=== PATIENT | female | born 2000 | race Caucasian/White ===

== ENCOUNTER 2022-02-19 18:47 | Emergency (ER) | payer SELFPAY ==
[2022-02-19 19:12] VITALS: BP 113/79; PULSE 98; RESP 18; TEMP 36.3; O2SAT 100
[2022-02-19 19:24] LABS: Basophils Percent Auto 0.3 % (0.2-1.2); Eosinophils Percent Auto 0.3 % (0-4.4); Hematocrit 43.7 % (37.0-47.0); Hemoglobin 14.5 g/dL (12.0-15.0); Immature Granulocyte Absolute 0.04 K/mm3 (0.00-0.031); Immature Granulocyte Percent A 0.3 % (0-0.5); Lymphocytes Absolute Auto 1.45 K/mm3 (0.9-3.2); Lymphocytes Percent Auto 10.5 % (18.3-44.2); Mean Corpuscular HGB Conc 33.2 g/dl (32-36); Mean Corpuscular Hemoglobin 30.4 pg (26-34); Mean Corpuscular Volume 91.6 fl (80-100); Mean Platelet Volume 10.2 fl (7.4-10.4); Monocytes Absolute Auto 0.7 K/mm3 (0.1-0.6); Neutrophils Absolute Auto 11.6 K/mm3 (1.3-6.7); Neutrophils Percent Auto 83.6 % (45.5-73.1); Platelet Count Result 318 k/mm3 (150-375); Red Blood Count 4.77 M/mm3 (4.2-5.4); Red Cell Distribution Width 11.4 % (11.5-14.5); White Blood Count 13.8 K/mm3 (4.5-10.0)
[2022-02-19 19:32] LABS: Appearance Urine Slightly Cloudy (Clear); Bilirubin Urine Negative (Negative); Blood Urine 2+ (Negative); Glucose Urine UA 2+ mg/dL (Negative); Ketones Urine 3+ mg/dL (Negative); Leukocyte Esterase Ur Trace LEU/UL (Negative); Nitrate Urine Positive (Negative); Protein Urine 2+ mg/dL (Negative); Specific Grav Ur 1.025 (1.001-1.035)
[2022-02-19 19:35] LABS: Add Urine Microscopic? YES; Color Urine Dark Yellow (Yellow)
[2022-02-19 19:38] LABS: Bacteria Urine Trace /hpf; RBC Urine 51-75 /hpf (0-2); Squamous Epithelial Cell Urine Many /hpf (Few); WBC Urine >75 /hpf
[2022-02-19 19:40] LABS: Alanine Aminotransferase 11 U/L (4-35); Albumin Level 4.5 g/dL (3.5-5.1); Alkaline Phosphatase 66 U/L (38-126); Anion Gap 7 mmol/L (8-16); Aspartate Amino Transferase 20 U/L (14-36); Bilirubin,Total 0.6 mg/dL (0.2-1.3); Blood Urea Nitrogen 10 mg/dL (7-17); Carbon Dioxide 27 mmol/L (22-30); Chloride 104 mmol/L (98-107); Estimated CRCL calculation 130 ml/min; Estimated Glomerular Filt Rate > 60; Glucose 211 mg/dL (65-110); Lipase 30 U/L (23-300); Potassium 3.4 mmol/L (3.4-5.0); Sodium 138 mmol/L (137-145)
--- NOTE | 2022-02-19 21:55 | PC.NURSE ---
Approached intake desk and requested something for pain . This RN apologized and stated that only MD would be able to give something for pain. Pt then stated she wanted to leave and ambulated out of ED with steady, even, unassisted gait. A/O x 4. Speech clear.
== END 2022-02-19 22:45 | disposition left against medical advice (07) ==
LOC: ANHED 22:43
PROVIDERS: Emergency Provider Emergency Medicine
DX: O26.891 Other specified pregnancy related conditions, first trimester (principal); R10.32 Left lower quadrant pain; R10.31 Right lower quadrant pain
CPT/HCPCS: 36415; 80053; 81001; 81025; 83690; 85025; 87086; 87088; 99199

== ENCOUNTER 2022-05-13 20:53 | Emergency (ER) | payer OTHER, SELFPAY ==
[2022-05-13 21:03] VITALS: BP 126/74; PULSE 92; RESP 16; TEMP 36.1; O2SAT 100
--- NOTE | 2022-05-13 21:04 | ED.SKABFB ---
HPI - Skin/Abscess/Foreign Bdy General Chief complaint: Skin/Abscess/Foreign Body Stated complaint: Abscess to left armpit Time Seen by Provider: 05/13/22 21:04 History of Present Illness HPI narrative: 22-year-old female presents the emergency room for evaluation of a questionable abscess to her left axilla. Patient was seen at her primary care's office on Saturday and was started on an unknown antibiotic, and has no visit that her abscess is not improved. Review of Systems Review of Systems: CONSTITUTIONAL: Denies fever, chills, or sweats. EYES: Denies visual changes, redness, or discharge. ENT: Denies rhinorrhea, congestion, sore throat, or otalgia. CARDIOVASCULAR: Denies chest pain, palpitations, or edema. RESPIRATORY: Denies cough or dyspnea. GASTROINTESTINAL: Denies abdominal pain, nausea, vomiting, or diarrhea. GENITOURINARY: Denies dysuria or hematuria. SKIN: Reports abscess to left axilla MUSCULOSKELETAL: Denies back pain, joint pain, or myalgia. NEUROLOGIC: Denies headache, numbness, dizziness, or weakness. PSYCHIATRIC: Denies anxiety or depression. Exam Narrative: GENERAL: Well-appearing, well-nourished, no physical limitations, and in no acute distress. HEAD: Normocephalic, atraumatic. EYES: Conjunctivae normal, PERRLA and EOMI. CHEST: Clear to auscultation. No respiratory distress. No wheezes rales or rhonchi. No tenderness. HEART: Regular rate and rhythm. No murmur heard. Normal peripheral pulses. BACK: No CVA tenderness; No cervical/thoracic/lumbar tenderness, step-offs, bony abnormality; FROM EXTREMITIES: Normal range of motion. No edema. No clubbing or cyanosis SKIN: Single pustule with surrounding erythema and underlying induration to the left axilla NEURO: No focal deficits. Alert and oriented x3. MAEW. CN's II-XI intact bilaterally, normal gait PSYCH: Cooperative. Normal mood and affect. Course Vital Signs Vital signs: Vital Signs Temperature 36.1 C L 05/13/22 21:03 Pulse Rate 92 05/13/22 21:03 Respiratory Rate 16 05/13/22 21:03 Blood Pressure 126/74 05/13/22 21:03 Pulse Oximetry 100 05/13/22 21:03 Oxygen Delivery Room Air 05/13/22 21:03 Temperature 36.1 C L 05/13/22 21:03 Pulse Rate 92 05/13/22 21:03 Respiratory Rate 16 05/13/22 21:03 Blood Pressure 126/74 05/13/22 21:03 Pulse Oximetry 100 05/13/22 21:03 Oxygen Delivery Room Air 05/13/22 21:03 Procedures Abscess I/D chest: Date of Incision: 05/13/22 Time of Incision: 22:25 Side (if applicable): left Sedation/analgesia: none Local Anesthetic: lidocaine 2% Amount of anesthesia used (mL): 4 Technique: needle aspiration Amount of fluid expressed (mL): 2 Irrigation: No Packing used?: none I&D Results: Pus and Blood Discharge Plan Discharge Clinical Impression: Abscess of skin or subcutaneous tissue Patient Disposition: Home, Self-Care Condition: Stable Instructions: Antibiotic Form, Abscess (ED) Prescriptions: New sulfamethoxazole-trimethoprim 800-160 mg tablet 1 tablet PO Q12H 7 Days Qty: 14 0RF Follow-up/Referrals: PHYSICIAN NOT ON STAFF,NONSTAFF [Non-Staff] - Stand Alone Forms: Work/School Release IP Time of Disposition: 22:24
[2022-05-13] MEDS: LIDOCAINE HCL 2% LOCAL INJ 20 ML VIAL (22:15)
== END 2022-05-13 22:49 | disposition home or self-care (01) ==
PROVIDERS: Emergency Provider Nurse Practitioner Family
DX: L02.412 Cutaneous abscess of left axilla (principal)
CPT/HCPCS: 10160; 99283; A9270

== ENCOUNTER 2022-05-23 16:06 | Emergency (ER) | payer OTHER, SELFPAY ==
--- NOTE | 2022-05-23 16:14 | PC.NURSE ---
when bringing pt back to get triaged pt states that [facility] only has a 30 minute wait and would rather go there. pt made aware that we will get EKG, and blood work. pt still states she would rather go to [facility].
== END 2022-05-23 16:49 | disposition left against medical advice (07) ==
LOC: ANHED 16:31
DX: Z53.21 Procedure and treatment not carried out due to patient leaving prior to being seen by health care provider (principal)
CPT/HCPCS: 99199

== ENCOUNTER 2022-05-24 09:10 | Emergency (ER) | payer OTHER, SELFPAY ==
[2022-05-24] VITALS (13 sets, daily range): BP systolic 105–120; BP diastolic 74–80; PULSE 71–97; RESP 16–22; TEMP 36.4; O2SAT 98–100
--- NOTE | ~2022-05-24 | XR_ITS ---
[[id number] ] INDICATION: Left rib pain TECHNIQUE: Frontal projection of the upper left ribs, frontal projection of the lower left ribs, obli que projection of all the left ribs, frontal inspiratory chest x-ray for interpretation. FINDINGS: There are no displaced rib fractures identified. There are no soft tissue abnormality see n. The lungs are clear. IMPRESSION: 1:No acute displaced rib fractures. Reviewed, dictated and finalized at location A.
--- NOTE | 2022-05-24 09:14 | ECG_ITS ---
Measurements Intervals [place] Rate: 87 P: 40 ND: 132 QRS: 85 QRSD: 84 T: 10 QT: 347 QTc: 418 Interpretive Statements SINUS RHYTHM NO PREVIOUS ECG AVAILABLE FOR COMPARISON Electronically Signed On 05-24-2022 10:21:44 CDT by Yossi Wright MD
--- NOTE | 2022-05-24 09:20 | ED.CHESTPAIN ---
HPI - Chest Pain General Chief Complaint: Chest Pain Stated Complaint: CP Time Seen by Provider: 05/24/22 09:12 History of Present Illness HPI narrative: Patient presents emergency department from home for chest pain. Patient states pain began 3 days ago and has been constant since that time pain is located in the left breast and the left side of the chest and does not radiate pain is increased with deep inspiration and movement of the torso and improves with rest states that she has been doing increased heavy lifting as a have been moving she denies any fevers or chills shortness of breath abdominal pain nausea vomiting or any other symptoms Related Data Allergies Allergy/AdvReac Type Severity Reaction Status Date / Time vancomycin Allergy Redness of Verified 05/24/22 09:18 Skin Review of Systems Review of Systems: Gen.: Denies fevers or chills ENT: Denies congestion Respiratory: Denies shortness of breath or cough CV: See HPI GI: Denies abdominal pain nausea, emesis or diarrhea Musculoskeletal: Denies back pain or muscle pain Neuro: Denies numbness, tingling, weakness or focal weakness Skin: Denies rash Except as documented, all other systems reviewed and negative [facility] Past Medical History Medical History (Updated 05/24/22 @ 13:44 by Manpreet Cornelius DO) Diabetes type 1, controlled Social History Social History (Updated 05/24/22 @ 13:42 by Manpreet Cornelius DO) Smoking status: Never smoker Exam Narrative: APPEARANCE: No acute distress, nontoxic, resting in bed EYES: EOMI HEENT: Normocephalic, atraumatic, OMM RESPIRATORY: No respiratory distress Clear to auscultation bilaterally with no rhonchi wheezing or rales. CARDIOVASCULAR: Regular rate and rhythm without murmurs rubs or gallops. Chest: Tender palpation left anterior lateral chest in the region of ribs 6 through 8 Ecchymosis pain increased with deep inspiration rotation of the torso ABDOMINAL: Soft, nontender, nondistended, no rebound or guarding MUSCULOSKELETAl: Moves all extremities. No clubbing, cyanosis or edema. NEURO: Awake and alert. Following commands, speech normal, no focal deficits SKIN:: Warm, dry. No rashes lesions or abrasions PSYCHIATRIC: Normal affect/mood, Course Course Emergency Course: Patient states pain is improved at this time Discussed with patient results of workup and diagnosis. Discussed need for follow-up with primary care, proper use of medication, and reasons to return to the emergency department. Patient understands and agrees to current treatment plan Vital Signs Vital signs: Vital Signs Temperature 97.5 F L 05/24/22 09:14 Pulse Rate 93 05/24/22 09:14 Respiratory Rate 20 05/24/22 09:14 Blood Pressure 109/74 05/24/22 09:14 Pulse Oximetry 100 05/24/22 09:14 Oxygen Delivery Room Air 05/24/22 09:14 Temperature 97.5 F L 05/24/22 09:14 Pulse Rate 97 05/24/22 12:41 Respiratory Rate 20 05/24/22 12:41 Blood Pressure 120/74 05/24/22 12:41 Pulse Oximetry 98 05/24/22 12:41 Oxygen Delivery Room Air 05/24/22 09:14 MDM - Chest Pain Lab Data Result diagrams: 05/24/22 09:21 05/24/22 09:21 Labs: Lab Results 05/24/22 05/24/22 05/24/22 Range/Units 09:21 09:21 09:21 WBC 5.9 (4.5-10.0) K/mm3 RBC 4.71 (4.2-5.4) M/mm3 Hgb 14.4 (12.0-15.0) g/dL Hct 43.5 (37.0-47.0) % MCV 92.4 (80-100) fl MCH 30.6 (26-34) pg MCHC 33.1 (32-36) g/dl RDW 11.6 (11.5-14.5) % Plt Count 315 (150-375) k/mm3 MPV 10.0 (7.4-10.4) fl Immature Gran % (Auto) 0.3 (0-0.5) % Neut % (Auto) 39.5 L (45.5-73.1) % Lymph % (Auto) 48.1 H (18.3-44.2) % [place] % (Auto) 10.6 H (2.6-8.5) % Eos % (Auto) 1.2 (0-4.4) % Baso % (Auto) 0.3 (0.2-1.2) % Lymph # (Auto) 2.82 (0.9-3.2) K/mm3 [place] # (Auto) 0.6 (0.1-0.6) K/mm3 Eos # (Auto) 0.1 (0-0.3) K/mm3 Baso # (Auto) 0.0 (0.0-0.1) K/mm3 Abs Immat
[2022-05-24 09:27] LABS: Basophils Percent Auto 0.3 % (0.2-1.2); Eosinophils Absolute Auto 0.1 K/mm3 (0-0.3); Eosinophils Percent Auto 1.2 % (0-4.4); Hematocrit 43.5 % (37.0-47.0); Hemoglobin 14.4 g/dL (12.0-15.0); Immature Granulocyte Absolute 0.02 K/mm3 (0.00-0.031); Immature Granulocyte Percent A 0.3 % (0-0.5); Lymphocytes Absolute Auto 2.82 K/mm3 (0.9-3.2); Lymphocytes Percent Auto 48.1 % (18.3-44.2); Mean Corpuscular HGB Conc 33.1 g/dl (32-36); Mean Corpuscular Hemoglobin 30.6 pg (26-34); Mean Corpuscular Volume 92.4 fl (80-100); Monocytes Absolute Auto 0.6 K/mm3 (0.1-0.6); Monocytes Percent Auto 10.6 % (2.6-8.5); Neutrophils Absolute Auto 2.3 K/mm3 (1.3-6.7); Neutrophils Percent Auto 39.5 % (45.5-73.1); Platelet Count Result 315 k/mm3 (150-375); Red Blood Count 4.71 M/mm3 (4.2-5.4); Red Cell Distribution Width 11.6 % (11.5-14.5); White Blood Count 5.9 K/mm3 (4.5-10.0)
[2022-05-24] MEDS: KETOROLAC 30 MG/ML VIAL (*BKC) IV PUSH (09:27)
[2022-05-24 09:38] LABS: Prothrombin Time 12.9 Seconds (11.1-14.7)
[2022-05-24 09:39] LABS: Partial Thromboplastin Time 25.8 SECONDS (22.3-36.8)
[2022-05-24 09:43] LABS: Alanine Aminotransferase 12 U/L (6-35); Albumin Level 4.1 g/dL (3.5-5.1); Alkaline Phosphatase 65 U/L (38-126); Anion Gap 12 mmol/L (8-16); Aspartate Amino Transferase 20 U/L (14-36); Bilirubin,Total 0.6 mg/dL (0.2-1.3); Blood Urea Nitrogen 15 mg/dL (7-17); Calcium 8.9 mg/dL (8.4-10.2); Carbon Dioxide 25 mmol/L (22-30); Chloride 105 mmol/L (98-107); Estimated CRCL calculation 130 ml/min; Estimated Glomerular Filt Rate > 60; Glucose 63 mg/dL (65-110); Lipase 24 U/L (23-300); Potassium 3.7 mmol/L (3.4-5.0); Sodium 142 mmol/L (137-145)
[2022-05-24 09:55] LABS: Troponin I < 0.012 ng/mL (0.000-0.034)
[2022-05-24] MEDS: MORPHINE SULFATE (*CRX) 2 MG/ML INJ IV PUSH (12:38)
[2022-05-24 13:05] LABS: Troponin I < 0.012 ng/mL (0.000-0.034)
[2022-05-24 13:07] LABS: D Dimer 0.27 ug/mL (<0.48)
== END 2022-05-24 13:54 | disposition home or self-care (01) ==
PROVIDERS: Emergency Provider Emergency Medicine
DX: R07.89 Other chest pain (principal); E10.9 Type 1 diabetes mellitus without complications
CPT/HCPCS: 36415; 71101; 80053; 81025; 83690; 84484; 85025; 85380; 85610; 85730; 93005; 96374; 96375; 99284; J1885; J2270